=== PATIENT | male | born 1940 | race Caucasian/White ===

== ENCOUNTER 2023-05-04 12:50 | Emergency (ER) | payer OTHER, SELFPAY ==
[2023-05-04 12:51] VITALS: BP 200/97
[2023-05-04 13:20] LABS: % Basophils 0.6 % (0-2); % Eosinophils 11.5 % (0-6); % Immature Granulocytes 0.8 % (0-0.5); % Lymphocytes 14.9 % (20.5-51.1); % Monocytes 9.1 % (1.7-9.3); % Neutrophils 63.1 % (42.2-75.2); Absolute Eosinophils 0.7 10^3/uL (0-0.7); Absolute Immature Granulocytes 0.1 10^3/uL (0-0.05); Absolute Lymphocytes 0.9 10^3/uL (1.2-3.4); Absolute Monocytes 0.6 10^3/uL (0.1-0.6); Absolute Neutrophils 3.9 10^3/uL (1.4-6.5); Hematocrit 40.2 % (39.0-52.0); Hemoglobin 13.8 g/dL (13.0-18.0); Mean Corp Hgb Conc. 34.3 g/dL (33.0-37.0); Mean Corpuscular Hgb 29.3 pg (27.0-31.0); Mean Corpuscular Volume 85.4 fL (80.0-94.0); Mean Platelet Volume 8.6 fL (7.4-10.4); Nucleated Red Blood Cells % 0 % (-); Platelet Count 226 10^3/uL (130-400); Red Blood Cell Count 4.71 10^6/uL (4.70-6.10); Red Cell Dist. Width 13.4 % (11.5-14.5); White Blood Cell Count 6.2 10^3/uL (4.8-10.8)
[2023-05-04 13:40] LABS: ALT (SGPT) 25 U/L (0-50); AST (SGOT) 41 U/L (17-59); Albumin 4.6 g/dl (3.5-5.0); Alkaline Phosphatase 64 U/L (38-126); Blood Urea Nitrogen 11 mg/dl (9-20); Calcium 9.2 mg/dl (8.4-10.2); Carbon Dioxide 23 mmol/L (22-30); Chloride 98 mmol/L (98-107); Glucose 102 mg/dl (70-99); Potassium 4.5 mmol/L (3.5-5.1); Sodium 130 mmol/L (135-145); Total Bilirubin 0.9 mg/dl (0.2-1.3); Total Protein 7.5 g/dl (6.3-8.2); eGFR > 60.00
[2023-05-04 14:12] VITALS: BP 191/84; BMI 32.7
[2023-05-04 15:09] VITALS: BP 182/76
--- NOTE | 2023-05-04 15:51 | ED.GENMED ---
History of Present Illness
General
Chief Complaint: Blood Pressure Problem
Source: patient
Time Seen by Provider: 05/04/23 15:18
Travel History
Have you had any contact with someone who has COVID-19?: No
Do you have any symptoms of coronavirus? Fever > 100 degrees, chills, cough, shortness of breath, sore throat, loss of taste or smell, muscle aches, or headache?: No
History of Present Illness
History of Present Illness:
83-year-old male presents to the emergency room complaining of elevated blood pressure. Patient woke up this morning and took his blood pressure finding it to be 150s systolic. He took the blood pressure again later this morning after eating
breakfast and it was more elevated in the 180s. He took at several more times and it seemed to be getting higher. He denies any chest pain, shortness breath, abdominal pain, peripheral edema. Patient endorses high sodium intake. Patient states
he had a low sodium a couple years ago and since then it puts salt on everything. He is afraid that he will have low sodium again. He believes his sodium was low at that time because of too much water ingestion.
Past History
Past History
ED Past Medical History: HTN, Hypothyroidism, Other (Remote history of rectal cancer with colon resection, chemotherapy and radiation therapy 2002) and Other (Iron deficiency anemia)
ED Past Surgical History: Bowel resection and Orthopedic
Social History
Tobacco: Former smoker
Alcohol: Occasional
Personal:
Living: with family
Phy Exam
Physical Exam
Physical Exam:
General: Awake, Alert, Oriented X3. No acute distress.
Vitals: unremarkable
Head: Atraumatic
Eyes: Pupils equal, EOMI
Throat: Airway intact, no exudates
Neck: Trachea midline
Lungs: Clear and equal b/l
Heart: Regular rate, no murmurs
Abd: Soft, Nontender, No pulsatile mass
Neuro: Nonfocal
Skin: Warm, dry, no rash
Extremities: pulses equal b/l, no edema
Course
Orders/Labs/Results
Orders:
Orders
05/04/23 12:56
Electrocardiogram (*1) Urgent
Reason for Study: Hypertension, Benign
05/04/23 12:57
EKG- Treatment ONCE
05/04/23 13:04
CHEM 20 [Comprehensive Metabolic Panel] Urgent
Complete Blood Count/With Diff Urgent
05/04/23 15:51
CR Chest - 2 Views Urgent
Comment:
Reason For Exam: sob
05/04/23 16:19
Urinalysis Reflex To Culture Urgent
Date Specimen was Collected: 05/04/23
Time Specimen was Collected: 16:16
05/04/23 17:51
Lisinopril [Zestril] 10 mg PO NOW STA
Abnormal Lab Results
05/04/23 05/04/23
13:04 16:19
Abs Immat Gran (auto) 0.1 H 10^3/uL
(0-0.05)
Absolute Lymphs (auto) 0.9 L 10^3/uL
(1.2-3.4)
Immature Gran % 0.8 H %
(0-0.5)
Lymphocytes % 14.9 L %
(20.5-51.1)
Eosinophils % 11.5 H %
(0-6)
Sodium 130 L mmol/L
(135-145)
Glucose 102 H mg/dl
(70-99)
Urine Ketones 1+ A
(Negative)
05/04/23 13:04
05/04/23 13:04
Vital Signs
Initial and Last Documented VS:
Initial Vital Signs
Temp Pulse Resp BP Pulse Ox
97.7 F 68 16 200/97 98
05/04/23 12:51 05/04/23 12:51 05/04/23 12:51 05/04/23 12:51 05/04/23 12:51
Last Documented Vital Signs
Temp Pulse Resp BP Pulse Ox
97.7 F 66 18 197/83 98
05/04/23 12:51 05/04/23 18:12 05/04/23 18:12 05/04/23 18:12 05/04/23 18:12
MDM/Problems Addressed
Differential Diagnosis Includes:
Uncontrolled hypertension, dietary indiscretion, noncompliance
MDM/Problems Addressed:
Patient presents with elevated blood pressure. He is asymptomatic. He does endorse eating a lot of salt but this is because he had hyponatremia in the past. Patient remained asymptomatic here in the emergency room. Will increase lisinopril to 20
mg today. Discussed with Dr. Nix. Follow-up with outpatient
*Pulse Oximetry
Patient hypoxic: no
*EKG
Interpreted by ED Provider?: Yes
Interpretation: normal
Heart Rate: 66
Rate: normal
Rhythm: sinus
[place]: normal axis
Interval: normal interval
QRS Pattern: right bundle branch block
Ischemia: no ischemia
*[employer] Adf Developer Interpretation
Rate: normal
Interpretation: normal
Rhythm: sinus
*Critical Care Note
Total Time (30-74mins, 75-104mins- exclusive of procedures): Not Applicable
ED Attending Note
-
Portions of this chart may have been created with voice recognition software.� Occasional wrong word or��sound alike� substitutions may have occurred due to the inherent limitations of voice recognition software.
Discharge Plan
Departure
Patient Disposition: Home (Routine Discharge)
Date of Disposition: 05/04/23
Time of Disposition: 17:51
Patient with high blood pressure during this ER visit?: Yes
Condition: Good
Discharge Problem:
Hypertension
Instructions: High Blood Pressure (DC)
Prescriptions:
No Action
levothyroxine 112 MCG tablet
112 mcg PO DAILY
omeprazole 40 MG capsule,delayed release(DR/EC)
40 mg PO DAILY
travoprost 0.004 % Drops
1 drp BOTH EYES HS
aspirin 81 mg Tablet,Delayed Release (Dr/Ec)
81 mg PO DAILY
dorzolamide-timolol 22.3-6.8 mg/mL drops
1 drp BOTH EYES TID
Patient Comments:
09/30/21 Rx written for BID but patient says he uses it TID
polyethylene glycol 3350 [Miralax] 17 gram/dose Powder
17 g PO DAILY PRN (Reason: constipation)
lisinopril 10 MG tablet
10 mg PO DAILY
Referrals:
Anabelle Nix MD [Family Provider] -
Activity Restrictions/Additional Instructions:
Increase the dose of your lisinopril to 20mg a day. You should follow up with Dr. Nix next week and she will check your blood pressure and labs.
Interventions
Interventions:
*Risk Screen - Suicide Last Done: 05/04/23 14:04
*General Assessment Last Done: 05/04/23 14:04
*Neglect/Abuse Screening Last Done: 05/04/23 14:04
ED- Fall Risk Assessment Last Done: 05/04/23 14:04
*ED COVID-19 Vaccine History Last Done: 05/04/23 12:51
*Nursing Disposition Last Done: 05/04/23 18:12
ED- Cardiac Assessment Last Done: 05/04/23 14:04
ED- Neurological Assessment Last Done: 05/04/23 14:04
ED- Pulmonary Assessment Last Done: 05/04/23 14:04
Discharge Date and Time
Discharge Date/Time: 05/04/23 18:16
[2023-05-04 16:00] VITALS: BP 186/77
[2023-05-04 16:39] VITALS: BP 205/88
[2023-05-04 16:43] LABS: Urine Albumin Trace (Neg - Trace); Urine Bilirubin Negative (Negative); Urine Character Clear (Clear); Urine Color Yellow; Urine Glucose Negative (Negative); Urine Ketone 1+ (Negative); Urine Leukocyte Negative (Negative); Urine Nitrite Negative (Negative); Urine Occult Blood Negative (Negative); Urine Urobilinogen Negative (Neg - 1+)
[2023-05-04] MEDS: ZESTRIL 10 MG PO (18:03)
--- NOTE | 2023-05-04 18:11 | EDRN ---
Reviewed discharge instructions with patient. Verbalized understanding.
[2023-05-04 18:12] VITALS: BP 197/83
== END 2023-05-04 18:16 | disposition home or self-care (01) ==
LOC: EMR 12:50
PROVIDERS: EMERGENCY PHYSICIAN Emergency Medicine; FAMILY PHYSICIAN Family Medicine
DX: I10 Essential (primary) hypertension (principal); Z87.891 Personal history of nicotine dependence
CPT/HCPCS: 99285; 71046; 80053; 81003; 85025; 93005